=== PATIENT | male | born 1980 | race Caucasian/White ===

== ENCOUNTER 2016-06-05 16:31 | Inpatient (IN) | payer MEDICARE, MEDICAID ==
[~2016-06-05] VITALS: Ht 162.6 cm; Wt 70.7 kg
[2016-06-05 17:10] LABS: MEAN CORPUSCULAR HEMOGLOBIN 33.1 pg (27.0-33.0); MEAN CORPUSCULAR HGB CONC 33.9 g/dl (32.0-36.5); MEAN CORPUSCULAR VOLUME 97.6 fl (80.0-96.0); RED CELL DISTRIBUTION WIDTH 13.1 % (11.5-14.5); WHITE BLOOD COUNT 11.4 K/mm3 (4.0-10.0)
[2016-06-05 17:16] LABS: AMPHETAMINES LEVEL URINE NEGATIVE (NEGATIVE); BENZODIAZEPINES URINE NEGATIVE (NEGATIVE); COCAINE METABOLITE URINE NEGATIVE (NEGATIVE); CONTROL LINE INT CTR LINE PRESENT; METHADONE URINE NEGATIVE (NEGATIVE); OPIATES URINE NEGATIVE (NEGATIVE); TRICYCLIC ANTIDEPRESS URINE NEGATIVE (NEGATIVE)
[2016-06-05 17:39] LABS: ALBUMIN 3.9 GM/DL (3.2-5.2); ALBUMIN/GLOBULIN RATIO 1.26 (1.00-1.93); ALKALINE PHOSPHATASE 81 U/L (45-117); ALT/SGPT 42 U/L (12-78); ANION GAP 9 MEQ/L (8-16); AST/SGOT 19 U/L (15-37); BILIRUBIN,DIRECT < 0.1 MG/DL (0.0-0.2); BILIRUBIN,TOTAL 0.3 MG/DL (0.2-1.0); BLOOD UREA NITROGEN 19 MG/DL (7-18); CALCIUM LEVEL 8.7 MG/DL (8.5-10.1); CARBON DIOXIDE LEVEL 22 MEQ/L (21-32); CHLORIDE LEVEL 108 MEQ/L (98-107); CREATININE FOR GFR 0.63 MG/DL (0.70-1.30); GLOMERULAR FILTRATION RATE > 60.0 (>60); GLUCOSE, FASTING 92 MG/DL (70-105); SODIUM LEVEL 139 MEQ/L (136-145)
[2016-06-05] MEDS ORDERED: LISINOPRIL 10 MG TAB As Ordered ONE (21:55)
[2016-06-05] MEDS ORDERED: LORazepam 1 MG TAB As Ordered ONE (21:56)
[2016-06-05] MEDS ORDERED: CHLORTHALIDONE 12.5MG PER 1/2 TABLET PO ONE (22:15)
[2016-06-05] MEDS ORDERED: LORazepam 1 MG TAB PO PRN (22:45)
[2016-06-05] MEDS ORDERED: ACETAMINOPHEN TAB 650MG DOSE (2X325MG) PO PRN (22:45)
[2016-06-05] MEDS ORDERED: MAALOX 30 ML SUSP *UDC PO PRN (22:45)
[2016-06-05] MEDS ORDERED: MOM 30ML SUSPENSION UDC PO PRN (22:45)
[2016-06-05] MEDS ORDERED: traZODone 50 MG TAB PO PRN (22:45)
[2016-06-05] MEDS ORDERED: TYLE325T5 PO (23:15)
--- NOTE | 2016-06-05 23:20 | EDDOCDS ---
Physician Documentation [facility] Name: Sae Winkler Age: 36 yrs Sex: Male : 1980 Arrival Date: 06/05/2016 Time: 16:31 Bed [facility] Private MD: Disposition: 06/05 22:49 Critical Care: Critical care not applicable. pc Disposition: 06/05/16 22:50 Hospitalization ordered by Rob Schmitz for Inpatient Admission. Preliminary diagnosis are Major depressive disorder, recurrent, moderate, Suicidal ideations, Essential (primary) hypertension. - Bed requested for Admit. - Status is Inpatient Admission. slm - Condition is Stable. - Problem is new. - Symptoms are unchanged. Historical: - Allergies: no known allergies; - Home Meds: 1. none - PMHx: mood swings; Depression; - PSHx: dental extraction; Hernia repair; - Social history: Smoking status: Patient uses tobacco products, current every day smoker. No barriers to communication noted, The patient speaks fluent [place]ij[place], Speaks appropriately for age. - Family history: Not pertinent. - : The pt / caregiver states he / she is not on anticoagulants. Home medication list is obtained from the patient. - Exposure Risk Screening:: None identified. Vital Signs: 16:36 Resp 18 S; Weight 72.57 kg / 159.99 lbs; Height 5 ft. 4 in. (162.56 cm) (R); srm 16:36 BP 186 / 92; Pulse 98; Temp 99.3(T); Pulse Ox 96% on R/A; srm 21:42 BP 190 / 90 RA Supine (auto/reg); Pulse 97 MON; Resp 16 S; Temp 96.7(T); Pulse Ox 98% ka4 on R/A; Pain 0/10; 22:36 BP 160 / 83 LA Supine (auto/reg); ka4 23:17 BP 160 / 80 LA (man/); Pulse 96; Resp 16; Pulse Ox 97% on R/A; Pain 0/10; slm 16:36 Body Mass Index 27.46 (72.57 kg, 162.56 cm) srm 21:42 MD aware of blood pressure ka4 MDM: 16:51 Consult PFS/PSA/Real Estate Office Manager ordered. fg 16:51 Consult PFS/PSA/Real Estate Office Manager: Patient's case requires discussion with on-call fg Psychiatrist ordered. 16:51 PSA/PFS to call Nursing Poultry Inseminator, to enter patient data on [place] Safe [place] if patient fg involuntarily admitted or transferred for SI or HI ordered. 16:51 Confirm accurate psychiatric medication list and times of last dosage ordered. fg 16:51 Detain Pt Until Medically/PFS Cleared ordered. fg 16:52 Acetaminophen Level Ordered. EDMS 16:52 Basic Metabolic Profile Ordered. EDMS 16:52 Complete Blood Count Ordered. EDMS 16:52 Drug Eval Toxicology ED Only Ordered. EDMS 16:52 Ethyl Alcohol (ethanol) Ordered. EDMS 16:52 Liver Profile Ordered. EDMS 16:52 Salicylate Level Ordered. EDMS 16:52 Thyroid Stimulating Hormone Ordered. EDMS 17:02 Consult PFS/PSA/Real Estate Office Manager complete. [facility] 17:02 Consult PFS/PSA/Real Estate Office Manager: Patient's case requires discussion with on-call [facility] Psychiatrist complete. 17:02 PSA/PFS to call Nursing Poultry Inseminator, to enter patient data on [place] Safe [place] if patient [facility] involuntarily admitted or transferred for SI or HI complete. 17:04 REGULAR DIET PLASTIC MALLOY+DIET ordered. EDMS 17:51 Financial registration complete. zo 18:57 [facility] Payment Agreement was scanned into [employer] and attached to record. zo 19:05 Awaiting: The patient is awaiting psychiatric admission or transfer. All labs and pc investigations have been reviewed. The vital signs have been reviewed. The patient remains medically cleared for disposition. 20:30 Acetaminophen Level Reviewed. pc 20:30 Basic Metabolic Profile Reviewed. pc 20:30 Complete Blood Count Reviewed. pc 20:30 Salicylate Level Reviewed. pc 20:30 Drug Eval Toxicology ED Only Reviewed. pc 20:30 Ethyl Alcohol (ethanol) Reviewed. pc 20:30 Liver Profile Reviewed. pc 20:30 Thyroid Stimulating Hormone Reviewed. pc 21:51 LORazepam 2 mg PO once ordered. pc 21:51 Lisinopril 10 mg PO once ordered. pc 21:51 Chlorthalidone 12.5 mg PO once ordered. pc 21:51 ED course: His BP remains elevated, without end-organ complaints. His EMR shows a visit pc for [facility] in 2011, at which time his BP was the exact same 190/90 range. I suspect he has long-standing essential HTN, and per JNC 8 guidelines, he will be started on an ACEI and a diuretic and will advise Psychiatry to have a medicine consult in the morning. 22:47 Admit to IM: ordered. EDMS 22:47 REGULAR DIET ordered. EDMS 22:49 [place] Safe [place] reporting: The patient poses a significant risk to self or others, and bridger CARMONA/KEN has notified the Nursing Poultry Inseminator and he/she will complete the required manager of data. Data reviewed: old medical records, vital signs, nurses notes, lab test results. Test interpretation: LAB - all labs as ordered have been reviewed, interpreted and considered in the overall management of the clinical presentation;. The patient has been re-examined and re-evaluated. The patient's symptoms have mildly improved after treatment. Disposition: The historical points, examination findings, and any diagnostic results supporting the provided diagnosis, were discussed with the patient or legal guardian. The need for further work-up and/or treatment in the hospital was explained. 22:50 Admit to [facility]: ordered. EDMS 22:55 [facility] Legal paperwork was scanned into [employer] and attached to record. derrick Administered Medications: 21:58 Drug: Lisinopril 10 mg [lisinopril 10 mg tablet (1 tabs)] Route: PO; m 23:18 Follow up: Response: Blood pressure is improved m 21:59 Drug: LORazepam 2 mg [lorazepam 1 mg tablet (2 tabs)] Route: PO; slm 22:26 Drug: Chlorthalidone 12.5 mg Route: PO; ka4 Signatures: Dispatcher [employer] Javi Turk MD MD pc Michelson, Staci, RN RN srm LaFontaine, Jon, PSA PSA jl Olin, Zoeann zo McIntyre, Stephanie, LPN LPN Linda Alexander MD MD fg Anderson, Kodie LPN ka4 The chart was reviewed and I authenticate all verbal orders and agree with the evaluation and treatment provided.Attachments: 18:57 [facility] Payment Agreement zo MTDD
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
[2016-06-05 23:25] VITALS: BP 177/98
[2016-06-06] MEDS: NICOTINE 21MG/24HR 1 EA TRANSDERMAL TD SCH (09:00)
--- NOTE | 2016-06-06 10:17 | HPEPDOC ---
Medical History and Physical Date of Admission Jun 05, 2016 at 23:34 History and Physical PCP: None ATTENDING: Dr. Sae Dailey HPI: 36yoM admitted to [facility] for MDD, being medically examined today. No acute medical complaints today. Denies any fevers, chills, weakness, fatigue, PARMAR, CP, SOB, cough, palpitations, abdominal pain, N/V/D or changes in bowel or bladder habits. PMHx: Depression edentulous/recent dental extractions Tobacco use PSHX: Dental extraction-dentures pending- scheduled 06/07/16. Hernia repair as child SOCHX: Resides in: [place] Marital Status: single Kids: 1 Employment: unemployed Tobacco use: One pack per day ETOH: Patient states he quit one week ago, previously 6 beers per day Illicit Drugs: Denies IV Drug Use: Denies Tattoos done unprofessionally: 2 FAMHX: Mother: Unknown Father: , unknown Siblings: 2 brothers, 2 sisters Alive, unknown Children: 1 child Alive, well Unexpected deaths due to medical reasons: None. ROS: As noted in HPI, otherwise 11pt ROS of systems reviewed and remarkable patient states he has occasional dysuria. He denies urinary frequency, urgency or hematuria. No flank pain. No fevers or chills. No change in urine odor or color. No discharge. No concern for STI. PE: GEN: 36yoM, appears stated age. Disheveled, poor hygiene. No acute distress. Alert and oriented x 3. Pleasant, interactive. HEENT: Normocephalic, atraumatic. Pupils are equal, round, and reactive to light. Extraocular movements are intact. No nystagmus appreciated. Sclera are nonicteric. Conjunctiva without injection. Nose midline. Nasal turbinates without bogginess. EACs both patent BL. TMs both visualized and callejas with good cone of light, no bulging or erythema. No facial asymmetry. Moist mucous membranes. Edentulous. Pharynx pink and moist, no cobblestoning. Neck supple, trachea midline. No lymphadenopathy or thyromegaly appreciated. CHEST: Regular rate and rhythm, +S1, +S2 LUNGS: Clear to auscultation bilaterally. No wheezes, rales, or rhonchi. Breathing appears symmetric and easy. Patient is speaking in full sentences. No accessory muscle use. ABD: Round, soft, non-tender, non-distended. +Bowel sounds throughout. No rebound or guarding. No costovertebral angle tenderness. EXT: Pulses 2+ bilaterally dorsalis pedis and radial. No lower extremity edema appreciated. SKIN: [place], dry, warm. Capillary refill <2sec. No rashes. NEURO: Alert and oriented x 3. Cranial nerves III-XII are intact. No focal deficits appreciated. EKG: Pending A&P: 36yoM admitted to [facility] for MDD 1. Psych. Plan per Psychiatry. Obtain baseline EKG to assure the safety of psychiatric medications as they can prolong the QT interval. 2. Nicotine dependence. Patch available. 3. Recent dental extractions. Appear to be well-healed. Patient is edentulous. Continue with soft foods. He is scheduled to receive dentures 06/07/16. We will need to ensure his dental appointment is rescheduled at discharge. 4. Follow up. No Primary Care Provider. Will attempt to establish PCP on discharge. 5. Leukocytosis. Likely reactive. Recheck CBC in a.m. 6. Dysuria. Check urinalysis/urine culture. Patient adamantly declines STI screening at this time. 7. Tattoos done unprofessionally. Patient adamantly declines HIV/hepatitis screening. 8. Elevated blood pressure on admission. Chlorthalidone 12.5 mg 1 dose given. A.m. vital signs are pending. Monitor blood pressure. Patient is not on antihypertensives as outpatient. 9. Accompanied throughout exam by Sae PAREKH. Vital Signs AM VS requested and pending. Laboratory Data Labs 24H Laboratory Tests 2 06/05/16 16:58: Acetaminophen Level < 2.0L, Aspartate Amino Transf (AST/SGOT) 19, Alanine Aminotransferase (ALT/SGPT) 42, Alkaline Phosphatase 81, Total Bilirubin 0.3, Direct Bilirubin < 0.1, Albumin 3.9, Albumin/Globulin Ratio 1.26, Anion Gap 9, Calcium Level 8.7, Ethyl Alcohol Level < 0.003, Glomerular Filtration Rate > 60.0, Salicylates Level 3.7L, Thyroid Stimulating Hormone (TSH) 0.686, Total Protein 7.0, Urine Amphetamine Level NEGATIVE, Urine Benzodiazepines Screen NEGATIVE, Urine Cannabinoids NEGATIVE, Urine Cocaine Metabolite NEGATIVE, Urine Opiates Screen NEGATIVE, Urine Barbiturates, Qualitative NEGATIVE, Urine Methadone Screen NEGATIVE, Urine Tricyclic Antidepressants NEGATIVE CBC/BMP Laboratory Tests 06/05/16 16:58 Red Blood Count 4.83, Mean Corpuscular Volume 97.6 H, Mean Corpuscular Hemoglobin 33.1 H, Mean Corpuscular Hemoglobin Concent 33.9, Red Cell Distribution Width 13.1 Home Medications Scheduled PRN Acetaminophen (Tylenol) 325 Mg Tab 325 MG PO PRN PRN PRN PAIN Allergies Coded Allergies: No Known Drug Allergy (Unverified Allergy, Unknown, 06/05/16) Kathie Ponce Jun 06, 2016 10:16
[2016-06-06] MEDS: CitaloPRAM (CeleXA) 20 MG TAB PO SCH (12:52)
[2016-06-06 18:00] VITALS: BP 133/70
--- NOTE | 2016-06-06 21:36 | MHHPE ---
DATE OF ADMISSION: 06/05/2016 DATE OF SERVICE: 06/06/2016 CHIEF COMPLAINT: "I told my girlfriend that [place] the [place] to [place] myself because I was tired of her yelling and cursing at me." HISTORY OF PRESENT ILLNESS: Sae Winkler is a 36-year-old -[place] man who was brought to the emergency department by police on a legal meat pickler order generated by his girlfriend. The patient says that he has been having relational problems with girlfriend and she has been yelling repeatedly at him. He says that he became fed up with her abusive rants towards him, thus he decided to threaten killing himself by drowning. He says however that although making threats about suicide, he actually did not mean to harm himself in any manner. He explains that "when I get mad or frustrated I just say stupid things." He admits however to having been depressed for a couple of weeks, with sleep disturbances and poor appetite, occasional feelings of hopelessness and fleeting suicidal thoughts. PAST PSYCHIATRIC HISTORY: Depression, had one previous [facility] visit on 12/10/2011 to the emergency department (ED) with reports of depression but was not admitted. He seemingly had been involved in conflicts at the time with his girlfriend. He denies previous psychiatric hospitalization. He says he goes to outpatient behavioral health for mental health services where he sees a psychiatrist and a counselor. He reports that he is prescribed Risperdal "for moods and depression", however he has not taken the medication for quite a awhile due to the side effects. SUBSTANCE ABUSE HISTORY: He reports use of a "lot of alcohol in the past", but denies indulging heavily in recent times, rather he drinks occasional beer during festivities. He smokes about a pack of cigarettes a day but denies use of illicit drugs . He is counseled on smoking cessation. MEDICAL HISTORY: He has hypertension. ALLERGIES: No known allergies. REVIEW OF SYSTEMS: None other than hypertension noted. PERSONAL HISTORY: Reports that he was born in [place]. Parents are . Father - while in senior living. No contact with his mother. He has two brothers and two sisters and has not had any contact with them for awhile. He completed 12th grade education (attended [employer]). 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 He supports himself with [employer] funds. LEGAL HISTORY: He denies any previous arrest. He has been once and currently is . He has an 18-year-old daughter but not in contact with her. FAMILY HISTORY: Patient denies any history of mental illness in most family members. MENTAL STATUS EXAMINATION: He is alert, calm, and cooperative. Wears an unkempt sher and hair. Grooming is inadequate. His speech reveals slight articulation impediment otherwise of normal volume, rate and rhythm. Thought process is coherent and goal-directed. He denies delusions of ideas of reference. No evidence of hallucinations. Mood is depressed and range of affect is restricted. He denies currently having active suicidal thoughts, plan or intent and he denies homicidal ideation. Cognitively he is alert and adequately oriented to time, place and person. No memory deficits are noted. Impulse control is in adequate. Insight is fair and judgment currently not impaired. ASSESSMENT: 36-year-old man with past history of mood related disorder. No previous psychiatric hospitalization. Seen and admitted via the emergency department due to being depressed and expressing suicidal ideation. He meets criteria for a depressive disorder with currently unclear risk of danger to self. DIAGNOSIS: Unspecified depressive disorder. PROBLEM LIST: 1. Depression. 2. Risk for suicide. PLAN: He will benefit from inpatient stabilization. Treatment will include 1. Pharmacotherapy. Celexa 20 mg orally daily will be started for treatment of depressive symptoms. Risks and benefits of medication explained to the patient and he expresses understanding and consents to taking the medication. 2. Therapeutic programming. He will be provided with group, individual and activity therapies to compliment medication management, ongoing assessment and supportive therapy. Discharge planning will commence immediately and once he is stabilized with appreciable decrease in suicidal risk he will be discharged with appropriate follow up arrangements. Estimated length of stay 4-7 days. MTDD
[2016-06-07 06:40] VITALS: BP 144/82
[2016-06-07 07:14] LABS: MEAN CORPUSCULAR HEMOGLOBIN 32.8 pg (27.0-33.0); MEAN CORPUSCULAR HGB CONC 32.9 g/dl (32.0-36.5); MEAN CORPUSCULAR VOLUME 99.7 fl (80.0-96.0); RED CELL DISTRIBUTION WIDTH 13.8 % (11.5-14.5); WHITE BLOOD COUNT 7.5 K/mm3 (4.0-10.0)
[2016-06-07] MEDS ORDERED: INFLUENZA QUADRIVALENT PF VACCINE 0.5ML SYRINGE/VIAL (90686) IM ONE (09:00)
[2016-06-07] MEDS: NICOTINE 21MG/24HR 1 EA TRANSDERMAL TD SCH (09:00)
[2016-06-07] MEDS: CitaloPRAM (CeleXA) 20 MG TAB PO SCH (09:56)
[2016-06-07] MEDS ORDERED: CELE20TA PO (15:14)
[2016-06-07] MEDS ORDERED: NICO21PAT TD (15:50)
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
--- NOTE | 2016-06-08 00:21 | EDDOCDS ---
Physician Documentation [facility] Name: Sae Winkler Age: 36 yrs Sex: Male : 1980 Arrival Date: 06/05/2016 Time: 16:31 Bed [facility] Private MD: Disposition: 06/05 22:49 Critical Care: Critical care not applicable. pc Disposition: 06/05/16 22:50 Hospitalization ordered by Rob Schmitz for Inpatient Admission. Preliminary diagnosis are Major depressive disorder, recurrent, moderate, Suicidal ideations, Essential (primary) hypertension. - Bed requested for Admit. - Status is Inpatient Admission. slm - Condition is Stable. - Problem is new. - Symptoms are unchanged. Historical: - Allergies: no known allergies; - Home Meds: 1. none - PMHx: mood swings; Depression; - PSHx: dental extraction; Hernia repair; - Social history: Smoking status: Patient uses tobacco products, current every day smoker. No barriers to communication noted, The patient speaks fluent Pry[place], Speaks appropriately for age. - Family history: Not pertinent. - : The pt / caregiver states he / she is not on anticoagulants. Home medication list is obtained from the patient. - Exposure Risk Screening:: None identified. Vital Signs: 16:36 Resp 18 S; Weight 72.57 kg / 159.99 lbs; Height 5 ft. 4 in. (162.56 cm) (R); srm 16:36 BP 186 / 92; Pulse 98; Temp 99.3(T); Pulse Ox 96% on R/A; srm 21:42 BP 190 / 90 RA Supine (auto/reg); Pulse 97 MON; Resp 16 S; Temp 96.7(T); Pulse Ox 98% ka4 on R/A; Pain 0/10; 22:36 BP 160 / 83 LA Supine (auto/reg); ka4 23:17 BP 160 / 80 LA (man/); Pulse 96; Resp 16; Pulse Ox 97% on R/A; Pain 0/10; slm 16:36 Body Mass Index 27.46 (72.57 kg, 162.56 cm) srm 21:42 MD aware of blood pressure ka4 MDM: 16:51 Consult PFS/PSA/Veneer Puller ordered. fg 16:51 Consult PFS/PSA/Veneer Puller: Patient's case requires discussion with on-call fg Psychiatrist ordered. 16:51 PSA/PFS to call Nursing Rubber Flap Cutter, to enter patient data [place] if patient fg involuntarily admitted or transferred for SI or HI ordered. 16:51 Confirm accurate psychiatric medication list and times of last dosage ordered. fg 16:51 Detain Pt Until Medically/PFS Cleared ordered. fg 16:52 Acetaminophen Level Ordered. EDMS 16:52 Basic Metabolic Profile Ordered. EDMS 16:52 Complete Blood Count Ordered. EDMS 16:52 Drug Eval Toxicology ED Only Ordered. EDMS 16:52 Ethyl Alcohol (ethanol) Ordered. EDMS 16:52 Liver Profile Ordered. EDMS 16:52 Salicylate Level Ordered. EDMS 16:52 Thyroid Stimulating Hormone Ordered. EDMS 17:02 Consult PFS/PSA/Veneer Puller complete. [facility] 17:02 Consult PFS/PSA/Veneer Puller: Patient's case requires discussion with on-call [facility] Psychiatrist complete. 17:02 PSA/PFS to call Nursing Rubber Flap Cutter, to enter patient data [place] if patient [facility] involuntarily admitted or transferred for SI or HI complete. 17:04 REGULAR DIET PLASTIC MALLOY+DIET ordered. EDMS 17:51 Financial registration complete. zo 18:57 [facility] Payment Agreement was scanned into [employer] and attached to record. zo 19:05 Awaiting: The patient is awaiting psychiatric admission or transfer. All labs and pc investigations have been reviewed. The vital signs have been reviewed. The patient remains medically cleared for disposition. 20:30 Acetaminophen Level Reviewed. pc 20:30 Basic Metabolic Profile Reviewed. pc 20:30 Complete Blood Count Reviewed. pc 20:30 Salicylate Level Reviewed. pc 20:30 Drug Eval Toxicology ED Only Reviewed. pc 20:30 Ethyl Alcohol (ethanol) Reviewed. pc 20:30 Liver Profile Reviewed. pc 20:30 Thyroid Stimulating Hormone Reviewed. pc 21:51 LORazepam 2 mg PO once ordered. pc 21:51 Lisinopril 10 mg PO once ordered. pc 21:51 Chlorthalidone 12.5 mg PO once ordered. pc 21:51 ED course: His BP remains elevated, without end-organ complaints. His EMR shows a visit pc for [facility] in 2011, at which time his BP was the exact same 190/90 range. I suspect he has long-standing essential HTN, and per JNC 8 guidelines, he will be started on an ACEI and a diuretic and will advise Psychiatry to have a medicine consult in the morning. 22:47 Admit to IM: ordered. EDMS 22:47 REGULAR DIET ordered. EDMS 22:49 [place] Safe [place] reporting: The patient poses a significant risk to self or others, and bridger CARMONA/KEN has notified the Nursing Rubber Flap Cutter and he/she will complete the required big data analytics lead. Data reviewed: old medical records, vital signs, nurses notes, lab test results. Test interpretation: LAB - all labs as ordered have been reviewed, interpreted and considered in the overall management of the clinical presentation;. The patient has been re-examined and re-evaluated. The patient's symptoms have mildly improved after treatment. Disposition: The historical points, examination findings, and any diagnostic results supporting the provided diagnosis, were discussed with the patient or legal guardian. The need for further work-up and/or treatment in the hospital was explained. 22:50 Admit to [facility]: ordered. EDMS 22:55 E Legal paperwork was scanned into [employer]gyl[employer] and attached to record. derrick 06/06 01:41 T-Sheet-- Draft Copy was scanned into [employer] and attached to record. lja Administered Medications: 06/05 21:58 Drug: Lisinopril 10 mg [lisinopril 10 mg tablet (1 tabs)] Route: PO; [facility] 23:18 Follow up: Response: Blood pressure is improved [facility] 21:59 Drug: LORazepam 2 mg [lorazepam 1 mg tablet (2 tabs)] Route: PO; [facility] 22:26 Drug: Chlorthalidone 12.5 mg Route: PO; ka4 Signatures: Dispatcher [employer] Javi Turk MD MD pc Michelson, Staci, RN RN Derian Gutierrez PSA PSA jl Olin, Zoeann zo McIntyre, Stephanie,IGLESIA LESTERN [facility] Are, Linda Us MD MD fg Anderson, Kodie LPN ka4 The chart was reviewed and I authenticate all verbal orders and agree with the evaluation and treatment provided.Attachments: 18:57 [facility] Payment Agreement zo 06/06 01:41 T-Sheet-- Draft Copy brii Chart Complete MTDD
--- NOTE | 2016-06-08 00:21 | EDDOCDS ---
Physician Documentation [facility] Name: Sae Winkler Age: 36 yrs Sex: Male : 1980 Arrival Date: 06/05/2016 Time: 16:31 Bed [facility] Private MD: Disposition: 06/05 22:49 Critical Care: Critical care not applicable. pc Disposition: 06/05/16 22:50 Hospitalization ordered by Rob Schmitz for Inpatient Admission. Preliminary diagnosis are Major depressive disorder, recurrent, moderate, Suicidal ideations, Essential (primary) hypertension. - Bed requested for Admit. - Status is Inpatient Admission. slm - Condition is Stable. - Problem is new. - Symptoms are unchanged. Historical: - Allergies: no known allergies; - Home Meds: 1. none - PMHx: mood swings; Depression; - PSHx: dental extraction; Hernia repair; - Social history: Smoking status: Patient uses tobacco products, current every day smoker. No barriers to communication noted, The patient speaks fluent Tristanian, Speaks appropriately for age. - Family history: Not pertinent. - : The pt / caregiver states he / she is not on anticoagulants. Home medication list is obtained from the patient. - Exposure Risk Screening:: None identified. Vital Signs: 16:36 Resp 18 S; Weight 72.57 kg / 159.99 lbs; Height 5 ft. 4 in. (162.56 cm) (R); srm 16:36 BP 186 / 92; Pulse 98; Temp 99.3(T); Pulse Ox 96% on R/A; srm 21:42 BP 190 / 90 RA Supine (auto/reg); Pulse 97 MON; Resp 16 S; Temp 96.7(T); Pulse Ox 98% ka4 on R/A; Pain 0/10; 22:36 BP 160 / 83 LA Supine (auto/reg); ka4 23:17 BP 160 / 80 LA (man/); Pulse 96; Resp 16; Pulse Ox 97% on R/A; Pain 0/10; slm 16:36 Body Mass Index 27.46 (72.57 kg, 162.56 cm) srm 21:42 MD aware of blood pressure ka4 MDM: 16:51 Consult PFS/PSA/Cavity Pump Operator ordered. fg 16:51 Consult PFS/PSA/Cavity Pump Operator: Patient's case requires discussion with on-call fg Psychiatrist ordered. 16:51 PSA/PFS to call Nursing Cotton Tier, to [place] if patient fg involuntarily admitted or transferred for SI or HI ordered. 16:51 Confirm accurate psychiatric medication list and times of last dosage ordered. fg 16:51 Detain Pt Until Medically/PFS Cleared ordered. fg 16:52 Acetaminophen Level Ordered. EDMS 16:52 Basic Metabolic Profile Ordered. EDMS 16:52 Complete Blood Count Ordered. EDMS 16:52 Drug Eval Toxicology ED Only Ordered. EDMS 16:52 Ethyl Alcohol (ethanol) Ordered. EDMS 16:52 Liver Profile Ordered. EDMS 16:52 Salicylate Level Ordered. EDMS 16:52 Thyroid Stimulating Hormone Ordered. EDMS 17:02 Consult PFS/PSA/Cavity Pump Operator complete. [facility] 17:02 Consult PFS/PSA/Cavity Pump Operator: Patient's case requires discussion with on-call [facility] Psychiatrist complete. 17:02 PSA/PFS to call Nursing Cotton Tier, to [place] data [place] if patient [facility] involuntarily admitted or transferred for SI or HI complete. 17:04 REGULAR DIET PLASTIC MALLOY+DIET ordered. EDMS 17:51 Financial registration complete. zo 18:57 [facility] Payment Agreement was scanned into [employer] and attached to record. zo 19:05 Awaiting: The patient is awaiting psychiatric admission or transfer. All labs and pc investigations have been reviewed. The vital signs have been reviewed. The patient remains medically cleared for disposition. 20:30 Acetaminophen Level Reviewed. pc 20:30 Basic Metabolic Profile Reviewed. pc 20:30 Complete Blood Count Reviewed. pc 20:30 Salicylate Level Reviewed. pc 20:30 Drug Eval Toxicology ED Only Reviewed. pc 20:30 Ethyl Alcohol (ethanol) Reviewed. pc 20:30 Liver Profile Reviewed. pc 20:30 Thyroid Stimulating Hormone Reviewed. pc 21:51 LORazepam 2 mg PO once ordered. pc 21:51 Lisinopril 10 mg PO once ordered. pc 21:51 Chlorthalidone 12.5 mg PO once ordered. pc 21:51 ED course: His BP remains elevated, without end-organ complaints. His EMR shows a visit pc for [facility] in 2011, at which time his BP was the exact same 190/90 range. I suspect he has long-standing essential HTN, and per JNC 8 guidelines, he will be started on an ACEI and a diuretic and will advise Psychiatry to have a medicine consult in the morning. 22:47 Admit to IM: ordered. EDMS 22:47 REGULAR DIET ordered. EDMS 22:49 [place] Safe [place] reporting: The patient poses a significant risk to self or others, and bridger CARMONA/KEN has notified the Nursing Cotton Tier and he/she will complete the required database marketing manager. Data reviewed: old medical records, vital signs, nurses notes, lab test results. Test interpretation: LAB - all labs as ordered have been reviewed, interpreted and considered in the overall management of the clinical presentation;. The patient has been re-examined and re-evaluated. The patient's symptoms have mildly improved after treatment. Disposition: The historical points, examination findings, and any diagnostic results supporting the provided diagnosis, were discussed with the patient or legal guardian. The need for further work-up and/or treatment in the hospital was explained. 22:50 Admit to [facility]: ordered. EDMS 22:55 E Legal paperwork was scanned into [employer] and attached to record. derrick 06/06 01:41 T-Sheet-- Draft Copy was scanned into [employer] and attached to record. lja Administered Medications: 06/05 21:58 Drug: Lisinopril 10 mg [lisinopril 10 mg tablet (1 tabs)] Route: PO; [facility] 23:18 Follow up: Response: Blood pressure is improved [facility] 21:59 Drug: LORazepam 2 mg [lorazepam 1 mg tablet (2 tabs)] Route: PO; [facility] 22:26 Drug: Chlorthalidone 12.5 mg Route: PO; ka4 Signatures: Dispatcher [employer] Javi Turk MD MD pc Michelson, Staci, RN RN Derian Gutierrez PSA PSA jl Olin, Zoeann zo McIntyre, Stephanie,IGLESIA LESTERN [facility] Are, Linda Us MD MD fg Anderson, Kodie LPN ka4 The chart was reviewed and I authenticate all verbal orders and agree with the evaluation and treatment provided.Attachments: 18:57 [facility] Payment Agreement zo 06/06 01:41 T-Sheet-- Draft Copy brii Chart Complete MTDD
--- NOTE | 2016-06-08 01:39 | MHDS ---
DATE OF ADMISSION: 06/05/2016 DATE OF DISCHARGE: 06/07/2016 HISTORY: Sae Winkler is a 36-year-old -Irish man who was admitted via the emergency department after he was brought in by police on a legal pickup order generated by his girlfriend. He, reportedly, had an argument with his girlfriend, and then told her that he would go to the river and drown himself. He related that said girlfriend had been yelling repeatedly at him and that he was fed up with her abusive rants towards him, thus, he decided to express threats of suicide by drowning. At the time of admission; however, he stated that although he made the threats about suicide, he actually did not mean to harm himself in any manner. He explained that "when I get mad or frustrated, I just say stupid things". He admitted, however, to having been depressed for a couple of weeks with sleep disturbances , all due to conflicts with his girlfriend. PAST PSYCHIATRIC HISTORY: The patient had one previous [facility] visit on 12/10/2011, after he came to the emergency department with reports of depression and suicidal ideation similarly related to conflict with same girlfriend; however, he was not admitted at the time. He denied previous psychiatric hospitalizations. He said he attends outpatient behavioral health for mental health services, and sees a psychiatrist who at some point prescribed him risperidone, but he stopped taking the medication due to unpleasant side effect. At the time of admission, he was not on any psychotropic medication. SUBSTANCE ABUSE HISTORY: He reported use of a lot of alcohol in the past, but denied indulging heavily in recent times, rather he drinks an occasional beer during festivities. He reports smoking a pack of cigarettes a day. Denies use of illicit drugs. MEDICAL HISTORY: Notable for hypertension. ALLERGIES: He has no known allergies. PERSONAL HISTORY: Reported that he was born in [place]. Parents are . Father . No contact with his mother. He has two brothers and two sisters with whom he has no interaction. He completed twelfth grade at [employer]. 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 Support is through Supplemental Security Income (SSI) funds. He denied any previous arrest. HOSPITAL COURSE: On admission, mental status revealed an alert, calm, and cooperative man who wore an unkempt sher and hair. His grooming was inadequate. His speech revealed slight articulation impediment, otherwise was of normal volume, rate, and rhythm. His thought process was coherent and goal-directed. He denied delusions or ideas of reference. There was no evidence of hallucinations. His mood was depressed and range of affect restricted. He denied having acute suicidal thoughts, plan, or intent, and denied homicidal ideation. Cognitively he was alert and adequately oriented to time, place, and person. No memory deficits were evident. Impulse control was adequate and insight and judgment not impaired. He was diagnosed with depressive disorder and and started on Celexa 20 mg orally daily for management of his depressive symptoms. In addition, was provided with group, individual, and activity therapies. On further assessment, he was noted to have no evidence of being a risk to self or to others. He did further clarify that the reason for his having made the comment about suicide was because of problems he was having with his girlfriend and her abusive behavior, but he said that he would followup with behavioral health. In the absence f further risk or severe symptomatology requiring further inpatient stay, discharge was scheduled for today. MENTAL STATUS EXAMINATION ON DISCHARGE: Client noted to be calm, cooperative, relates quite well. Speech is fluent. Thought process coherent and goal- directed. No psychotic features are evident. His mood is less depressed and he denies suicidal or homicidal thoughts, plan, or intent. No medication related adverse events. VITAL SIGNS ON DISCHARGE: Blood pressure 144/82, pulse 67, respirations 18, temperature 95.5. PLAN: Patient discharged with appropriate followup arrangements arrangement with his primary outpatient mental health provider. DISCHARGE MEDICATIONS: - Celexa 20 mg orally daily DISCHARGE DIAGNOSIS: Unspecified depressive disorder. Plan discussed with the patient and he is in agreement. SHANTEL
--- NOTE | 2016-06-08 16:50 | ECGEPIP ---
Stationary ECG Study [facility] Test Date: 2016-06-06 Pat Name: AMADO GARCÍA Department: Room: [place] [address] Gender: M Guest Services Attendant: RIVERA : 1980 Requested By: Kathie Ponce Order Number: [id number] Reading MD: Alonso Barnett Measurements Intervals [place] Rate: 79 P: 57 MS: 133 QRS: 42 QRSD: 83 T: 45 QT: 363 QTc: 416 Interpretive Statements SINUS RHYTHM NORMAL Electronically Signed On 06-08-2016 16:50:01 EST by Alonso Barnett
== END 2016-06-07 17:00 | disposition home or self-care (01) | DRG 881 ==
LOC: M ED 16:31 → M PSY 23:34
PROVIDERS: ADMIT Psychiatry & Neurology Psychiatry; ATTEND Psychiatry & Neurology Psychiatry
DX: F32.9 Major depressive disorder, single episode, unspecified (principal); F17.210 Nicotine dependence, cigarettes, uncomplicated; R30.0 Dysuria

== ENCOUNTER 2019-12-09 00:28 | Emergency (ER) | payer MEDICARE, MEDICAID ==
[~2019-12-09] VITALS: Ht 162.6 cm; Wt 68.2 kg
[~2019-12-09 00:28] MED LIST: CELE20TA PO; NICO21PAT TD; TYLE325T5 PO
[2019-12-09] MEDS ORDERED: HYDR-3363 (00:46)
[2019-12-09] MEDS ORDERED: LISI40TA (00:46)
[2019-12-09 01:01] LABS: HEMATOCRIT 48.4 % (42.0-52.0); HEMOGLOBIN 16.7 g/dl (13.5-17.5); MEAN CORPUSCULAR HEMOGLOBIN 32.7 pg (27.0-33.0); MEAN CORPUSCULAR HGB CONC 34.5 g/dl (32.0-36.5); MEAN CORPUSCULAR VOLUME 94.9 fl (80.0-96.0); PLATELET COUNT, AUTOMATED 306 10^3/uL (150-450); WHITE BLOOD COUNT 12.3 10^3/uL (4.0-10.0)
[2019-12-09 01:30] LABS: AMPHETAMINES LEVEL URINE NEGATIVE (NEGATIVE); BARBITURATES URINE NEGATIVE (NEGATIVE); BENZODIAZEPINES URINE NEGATIVE (NEGATIVE); CANNABINOIDS URINE NEGATIVE (NEGATIVE); COCAINE METABOLITE URINE NEGATIVE (NEGATIVE); METHADONE URINE NEGATIVE (NEGATIVE); OPIATES URINE NEGATIVE (NEGATIVE); PHENCYCLIDINE URINE NEGATIVE (NEGATIVE)
[2019-12-09 01:47] LABS: ACETAMINOPHEN LEVEL < 2.0 UG/ML (10.0-30.0); ALBUMIN 4.3 GM/DL (3.2-5.2); ALT/SGPT 60 U/L (12-78); BILIRUBIN,DIRECT < 0.1 MG/DL (0.0-0.2); BILIRUBIN,TOTAL 0.2 MG/DL (0.2-1.0); BLOOD UREA NITROGEN 10 MG/DL (7-18); CALCIUM LEVEL 9.3 MG/DL (8.5-10.1); CARBON DIOXIDE LEVEL 23 MEQ/L (21-32); CHLORIDE LEVEL 103 MEQ/L (98-107); CREATININE FOR GFR 0.83 MG/DL (0.70-1.30); ETHYL ALCOHOL (ETHANOL) < 0.003 % (0.000-0.010); GLOMERULAR FILTRATION RATE > 60.0 (>60); GLUCOSE, FASTING 92 MG/DL (70-100); SALICYLATE LEVEL 2.4 MG/DL (5.0-30.0); SODIUM LEVEL 134 MEQ/L (136-145); TOTAL PROTEIN 7.8 GM/DL (6.4-8.2)
[2019-12-09 05:34] VITALS: BP 160/82
== END 2019-12-09 05:37 | disposition home or self-care (01) ==
LOC: M ED 00:28
DX: F43.20 Adjustment disorder, unspecified (principal); F33.9 Major depressive disorder, recurrent, unspecified; F41.1 Generalized anxiety disorder; Z79.899 Other long term (current) drug therapy; F17.210 Nicotine dependence, cigarettes, uncomplicated
CPT/HCPCS: 36415; 80048; 80076; 80307; 84443; 85027; 99284; G0480